=== PATIENT | male | born 1970 | race Caucasian/White ===

== ENCOUNTER → 2021-08-19 | Day surgery (SDC) | payer OTHER ==
[~2021-08-19] MED LIST: ASPIRIN81 MG PO; COQ-1030 MG PO; FENTANYL CITRATE/PF 100MCG/2 ML INJ ONE; LIPITOR10 MG PO; MIDAZOLAM HCL 2 MG/2 ML VIAL ONE
[2021-08-19 09:35] VITALS: BP 111/84
== END | disposition home or self-care (01) ==
LOC: OR 06:09
PROVIDERS: ATTEND Internal Medicine Gastroenterology
DX: K29.50 Unspecified chronic gastritis without bleeding (principal); D12.0 Benign neoplasm of cecum; D12.2 Benign neoplasm of ascending colon; D12.3 Benign neoplasm of transverse colon; K62.1 Rectal polyp; K22.10 Ulcer of esophagus without bleeding; K44.9 Diaphragmatic hernia without obstruction or gangrene; K64.8 Other hemorrhoids; E78.00 Pure hypercholesterolemia, unspecified; Z01.810 Encounter for preprocedural cardiovascular examination; Z01.812 Encounter for preprocedural laboratory examination; Z20.822 Contact with and (suspected) exposure to COVID-19; Z79.82 Long term (current) use of aspirin; Z68.35 Body mass index [BMI] 35.0-35.9, adult
CPT/HCPCS: 43239; 45380; 45384; 45385; 93005; C9113; J2250; J3010; U0002; 45378